=== PATIENT | female | born 1995 | race Caucasian/White ===

== ENCOUNTER 2018-01-24 14:56 | Outpatient (RCR) | payer OTHER | END 2018-04-24 | disposition still patient (30) | LOC: WSOH | DX: T59.894A Toxic effect of other specified gases, fumes and vapors, undetermined, initial encounter (principal); R51 Headache; R42 Dizziness and giddiness; Y92.238 Other place in hospital as the place of occurrence of the external cause; Y99.0 Civilian activity done for income or pay ==